=== PATIENT | male | born 1965 | race Caucasian/White ===

== ENCOUNTER 2023-08-23 14:33 | Emergency (ER) | payer OTHER ==
[~2023-08-23] VITALS: Ht 185.4 cm; Wt 178.1 kg
[~2023-08-23 14:33] MED LIST: ALLOPURINOL100 MG PO; AMLODIPINE BESYL5 MG PO; BELSOMRA10 MG PO; FUROSEMIDE40 MG PO; HYZAAR 100-251 EACH PO; MELOXICAM15 MG PO; MICARDIS80 MG PO; MOBIC7.5 MG PO; NORCO 10-325 T1 EACH PO; POTASSIUM CHLO20 ME1 PO; ULTRAM50 MG PO
--- OUTSIDE RECORDS SUMMARY | 2023-08-23 14:40 | XMS ---
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 [facility] VISIT COUNT (12 MO.) 2 [facility] Jaja Lynch) [address] [place] [address] TOTAL 3 NOTE: Visits indicate total known visits. ED/UCC VISIT TRACKING (12 MO.) 08/23/2023 14:34 [facility] TYPE: Emergency COMPLAINT: - SHORTNESS OF BREATH 08/13/2023 09:21 [facility] Cris KANG ([place]) TYPE: Emergency DIAGNOSES: - Anemia in other chronic diseases classified elsewhere - Chronic kidney disease, stage 3 unspecified - Unspecified abdominal pain - back pain - Flank Pain 10/17/2022 10:53 [facility] Cris KANG ([place]) TYPE: Emergency DIAGNOSES: - Bacterial infection, unspecified - Urinary tract infection, site not specified - Dysuria - pain while urinating INPATIENT VISIT TRACKING (12 MO.) No inpatient visits to display in this time frame [email or web address]
[2023-08-23] MEDS ORDERED: ALLOPURINOL300 MG PO (14:49)
[2023-08-23 14:52] LABS: BASOPHILS 0.4 % (0-2); EOSINOPHILS 3.6 % (0-6); HEMATOCRIT 32.6 % (35.0-50.0); HEMOGLOBIN 10.3 g/dL (12.0-18.0); LYMPHOCYTES 19.4 % (24-44); MCH 28.6 (27-36); MCHC 31.5 g/dl (30-36); MCV 90.8 fl (81-99); MONOCYTES 7.4 % (0-12); NEUTROPHILS 69.2 % (39-80); PLATELET COUNT 184 K/uL (140-440); RBC 3.59 M/ul (4.3-5.7); RDW 16.7 (10.5-15.0)
[2023-08-23 15:09] LABS: ALBUMIN 3.4 g/dL (3.4-5.0); ALBUMIN/GLOBULIN RATIO 1.03 (1.1-2.4); ANION GAP 17.3 (7-21); BILIRUBIN, TOTAL 0.4 ng/dL (0.2-1.0); BUN/CREATININE RATIO 21.97 (6.0-28.6); CALCIUM 8.6 mg/dL (8.5-10.1); CREATININE, SERUM 2.73 mg/dL (0.70-1.30); MAGNESIUM 1.1 mg/dL (1.8-2.4); POTASSIUM 4.3 mmol/L (3.5-5.1); PROTEIN, TOTAL 6.7 g/dL (6.4-8.2)
[2023-08-23 15:44] LABS: INFLUENZA B NAA NEGATIVE (NEGATIVE); RESPIRATORY SYNCYTIAL VIR NAA NEGATIVE (NEGATIVE)
[2023-08-23 16:59] LABS: INR 1.11 (0.80-1.30); PROTIME 13.9 Sec (11.2-14.2)
[2023-08-23 21:45] VITALS: BP 134/85
--- NOTE | 2023-08-23 22:43 | EKG ---
[facility] [address] [facility] [place] [address] Signed Sinus tachycardia with premature supraventricular complexes Incomplete right bundle branch block Nonspecific ST abnormality Abnormal ECG No previous ECGs available Confirmed by Atilio Beach MD () on 08/23/2023 10:43:08 PM Electronically Signed By: ATILIO BEACH MD 08/23/232242 PATIENT NAME: GUDELIA BURT Electrocardiogram DATE OF : 61 PHYSICIAN: ATILIO BEACH MD REPORT #: [id number] REPORT IS CONFIDENTIAL AND NOT TO BE RELEASED WITHOUT AUTHORIZATION
--- NOTE | 2023-08-23 22:44 | EKG ---
[facility] [address] [facility] [place] [address] Signed Sinus tachycardia Low voltage QRS Nonspecific ST abnormality Abnormal ECG When compared with ECG of 23-AUG-2023 14:26, premature supraventricular complexes are no longer present Confirmed by Atilio Beach MD () on 08/23/2023 10:43:57 PM Electronically Signed By: ATILIO BEACH MD 08/23/23 2244 PATIENT NAME: MIKAYLADEANGELOGUDELIA Electrocardiogram DATE OF : 61 PHYSICIAN: ATILIO BEACH MD REPORT #: [id number] REPORT IS CONFIDENTIAL AND NOT TO BE RELEASED WITHOUT AUTHORIZATION
== END 2023-08-23 21:45 | disposition short-term general hospital (02) ==
LOC: ED 14:33
PROVIDERS: Emergency Medicine
DX: I26.99 Other pulmonary embolism without acute cor pulmonale (principal); I82.432 Acute embolism and thrombosis of left popliteal vein; I12.9 Hypertensive chronic kidney disease with stage 1 through stage 4 chronic kidney disease, or unspecified chronic kidney disease; N18.9 Chronic kidney disease, unspecified; Z79.899 Other long term (current) drug therapy; Z20.822 Contact with and (suspected) exposure to COVID-19
CPT/HCPCS: 36415; 70450; 71045; 80053; 83735; 83880; 84484; 85025; 85379; 85610; 85730; 87502; 93005; 93010; 93970; 94660; J1644; J2997; J3475; U0002